=== PATIENT | male | born 1965 | race African-American/Black ===

== ENCOUNTER 2017-01-31 11:43 | Emergency (ER) | payer OTHER ==
[2017-01-31] MEDS ORDERED: Ibuprofen 800 MG TAB ONE (11:55)
--- NOTE | 2017-01-31 13:29 | RAD ---
RADIOGRAPH LUMBAR SPINE 3 VIEWS: HISTORY: A 51-year-old male, status post acute lumbar trauma. FINDINGS: Vertebral body heights are maintained. There is no evidence of fracture. IMPRESSION: No evidence of compression fracture. sergio [] POS: [facility]
--- NOTE | 2017-01-31 13:31 | RAD ---
RADIOGRAPH RIGHT ELBOW FOUR VIEWS: HISTORY: A 51-year-old male, status post acute traumatic injury to the right elbow. FINDINGS: There is no dislocation. No fracture is identified. The lateral view is suboptimally positioned, a nd therefore, it is difficult to evaluate for a displaced fad pad sign. IMPRESSION: No fracture identified. POS: [facility]
--- NOTE | 2017-01-31 13:32 | RAD ---
RADIOGRAPH RIGHT FOREARM TWO VIEWS: HISTORY: A 51-year-old male status post traumatic pain to the right forearm. FINDINGS: No evidence of acute fracture involving the radius or ulna. IMPRESSION: Negative. POS: [facility]
== END 2017-01-31 13:08 | disposition home or self-care (01) ==
LOC: MADERS 11:43
DX: S39.012A Strain of muscle, fascia and tendon of lower back, initial encounter (principal); S50.11XA Contusion of right forearm, initial encounter; F17.210 Nicotine dependence, cigarettes, uncomplicated; V43.52XA Car driver injured in collision with other type car in traffic accident, initial encounter
CPT/HCPCS: 72100